=== PATIENT | male | born 1975 | race Caucasian/White ===

== ENCOUNTER 2020-08-16 10:13 | Emergency (ER) | payer BC, SELFPAY ==
[2020-08-16 10:25] VITALS: BP 151/87; PULSE 96; RESP 18; TEMP 36.9; O2SAT 97
--- NOTE | 2020-08-16 10:30 | ED.SKABFB ---
HPI - Skin/Abscess/Foreign Bdy General Chief complaint: Skin/Abscess/Foreign Body Stated complaint: spider bite Source: patient and RN notes reviewed Mode of arrival: ambulatory History of Present Illness HPI narrative: This is a 45-year-old male who presented to urgent care with complaints of a possible insect bite to his right flank. According to patient he developed erythema and edema to his right side flank on . Patient notes that the insect bite soon after turned into a blister. He did not do anything at home to treat his condition, he notes that edema and erythema started spreading an open area developed where the blister was. The patient denies SOB, CP, palpitation, extremity numbness, lightheadedness, dizziness, constipation, diarrhea, chills, or fever. MD complaint: insect bite/sting Related Data Home Medications Medication Instructions Recorded Confirmed lisinopril 10 mg PO DAILY 01/22/19 08/16/20 Allergies Allergy/AdvReac Type Severity Reaction Status Date / Time No Known Allergies Allergy Verified 08/16/20 10:16 Review of Systems Review of Systems: Narrative: A 14 organ system Review of Systems was performed and pertinent positives included in the HPI, otherwise remaining ROS is negative. [facility] Past Medical History Medical History (Updated 08/16/20 @ 10:39 by IVY Dorsey) HTN (hypertension) Surgical History Surgical History (Updated 01/22/19 @ 13:18 by Lamberto Freed) No pertinent past surgical history Family History Family History (Updated 08/16/20 @ 10:31 by IVY Dorsey) Other Family history non-contributory Social History Social History (Updated 01/22/19 @ 13:18 by Lamberto Freed) Smoking status: Never smoker Alcohol intake: never Exam Narrative: Exam Narrative: GENERAL: This is a well-nourished, well-developed patient, in no apparent distress. HEAD: normocephalic, atraumatic. EYES: PERRL. Sclera clear/white. Vision is grossly intact. EARS: External ears normal, auditory canals clear and without drainage, TMs normal without perforation. Hearing grossly intact. NOSE: External nose normal with no obvious nasal discharge, nares without redness, no rhinorrhea. THROAT: Mucous membranes moist, posterior pharynx clear. NECK: Neck supple, non-tender without lymphadenopathy, masses or thyromegaly. CARDIOVASCULAR: Regular rate and rhythm without murmurs, gallops, or rubs. RESPIRATORY: Clear to auscultation. Breath sounds equal bilaterally. No wheezes, rales, or rhonchi. GASTROINTESTINAL: Abdomen soft, non-tender, nondistended. Bowel sounds are active. No hepato-splenomegaly, or palpable masses. No guarding. SKIN: right side edematous with erythematous dime size open area. NEURO: awake, alert, and oriented to person, place and time. There were no obvious focal neurologic abnormalities. Steady gait EXTREMITIES: Normal range of motion. No edema. No calf tenderness. Negative Homans sign bilaterally. BACK: Nontender without deformity or crepitance. No flank tenderness. Course Course Emergency Course: Patient will go home with doxycycline 100 mg twice daily x7 days he was also instructed to cleanse the site twice daily with water and soap and apply Neosporin with a Band-Aid. Patient was educated on signs and symptoms of infection and instructed to notify his doctor or proceed to the nearest emergency department if he notices signs of infection Vital Signs Vital signs: Vital Signs Temperature 98.5 F 08/16/20 10:25 Pulse Rate 96 08/16/20 10:25 Respiratory Rate 18 08/16/20 10:25 Blood Pressure 151/87 H 08/16/20 10:25 Pulse Oximetry 97 08/16/20 10:25 Temperature 98.5 F 08/16/20 10:25 Pulse Rate 96 08/16/20 10:25 Respiratory Rate 18 08/16/20 10:25 Blood Pressure 151/87 H 08/16/20 10:25 Pulse Oximetry 97 08/16/20 10:25 MDM - Skin/Abscess/Foreign Bdy Differential Diagnosis Differential diagnosis: Likely abscess of sk
== END 2020-08-16 10:46 | disposition home or self-care (01) ==
PROVIDERS: Emergency Provider Nurse Practitioner; PCP Family Medicine
DX: S30.861A Insect bite (nonvenomous) of abdominal wall, initial encounter (principal); W57.XXXA Bitten or stung by nonvenomous insect and other nonvenomous arthropods, initial encounter; I10 Essential (primary) hypertension; L03.311 Cellulitis of abdominal wall
CPT/HCPCS: 99213; G0463